=== PATIENT | female | born 1995 | race African-American/Black ===

== ENCOUNTER 2018-07-10 10:46 | Emergency (ER) | payer SELFPAY ==
[~2018-07-10] VITALS: Ht 165.1 cm; Wt 82.0 kg
[2018-07-10 10:58] VITALS: BP 109/68
[2018-07-10] MEDS ORDERED: NORCO (11:04)
[2018-07-10] MEDS ORDERED: TETANUS, DIPHTHERIA, PERTUSSIS VAC/PF 0.5ML (>7YR OLD) IM ONE (11:15)
== END 2018-07-10 12:06 | disposition home or self-care (01) ==
LOC: EDBD 11:13 → ER 11:13
DX: S40.211A Abrasion of right shoulder, initial encounter (principal); V98.8XXA Other specified transport accidents, initial encounter; Y93.89 Activity, other specified; Y92.89 Other specified places as the place of occurrence of the external cause; Y99.8 Other external cause status
CPT/HCPCS: 90471; 90715; 99283